=== PATIENT | female | born 1960 | race Two or more races ===

== ENCOUNTER 2022-07-14 14:51 | Outpatient (REF) | payer OTHER, SELFPAY ==
[2022-07-14 16:05] LABS: Blood Urea Nitrogen 10 mg/dL (9-16); Estimated Glomerular Filt Rate > 60
== END 2022-07-14 14:52 | disposition home or self-care (01) ==
LOC: HO.LAB 14:51
PROVIDERS: Visit Provider Psychiatry & Neurology Neurology
DX: G44.209 Tension-type headache, unspecified, not intractable (principal); I10 Essential (primary) hypertension
CPT/HCPCS: 36415; 82565; 84520

== ENCOUNTER 2025-03-12 08:22 | Outpatient (AMB) | payer OTHER, SELFPAY ==
--- OUTSIDE RECORDS SUMMARY | 2025-03-12 08:34 | XMS_ITS | Encounter Summary ---
Author Organization [facility] Address [address] [place] [address] Care Team Providers Care Consumer Insights Intern Name Role Phone Luana Barrera MD Primary Care Provider Encounter Details Date Type Department Care Team (Late Contact Info) Description 02/27/2025 Results Follow-Up [facility] [address] [place] [address] Maura Luna, SANDRA [address] [place] [phone] Social History Tobacco Use Types Packs/Day Years Used Date Smoking Tobacco: Never Smokeless Tobacco: Never Alcohol Use Standard Drinks/Week Comments No 0 (1 standard drink = 0.6 oz pur e alcohol) Comments No Sex and Gender Information Value Date Recorded Sex Assigned at Not on file Legal Sex Female 8:01 PM EST Gender Identity Not on file Sexual Orientation Not on file documented as of this encounter Plan of Treatment Upcoming Encounters Date Type Department Care Team (Late Contact Info) Description 03/28/2025 8:[address] [facility] [address] [place] [address] Rubén Victoria DO [address] [id number] 04/08/2025 8:30 AM EST Office Visit Adult Medicine [facility] [address] [place] [phone] Harinder Orozco PA [address] [place] [address] documented as of this encounter Goals Goal Patient Goal Type Associated Problems Recent Progress Patient-Stated? Author Autogenerat ed Goal Care Plan Autogenerated Problem No Steven Partida documented as of this encounter Visit Diagnoses Not on filedocumented in this encounter Additional Health Concerns Active Problems Noted Date Diagnosed Date Autogenerated Problem 02/27/2025 Assessment Noted Time PHQ-9 Depression Total Score: 12 02/12/2 025 10:24 AM EDT documented as of this encounter Care Teams Consumer Insights Intern Relationship Specialty Start Date End Date Luana Barrera MD [address] [place] [address] PCP - General Internal Medicine 04/08/24 documented as of this encounter
--- OUTSIDE RECORDS SUMMARY | 2025-03-12 08:35 | XMS_ITS | Clinical Summary ---
Author Organization [facility] [address] [place] [address] [place] [phone] Phone Care Team Providers Care Geoscience Laboratory Technician Name Role Phone Luana Barrera MD Primary Care Provider Allergies Active Allergy Reactions Criticality Noted Date Comments Amoxicillin-Pot Clavulanate 04/15/20 14 Other Reaction(s): Rash/Dermatitis Other 06/17/2015 steroids Medications cetirizine (ZyrTEC) 10 mg tablet Take 1 Tablet by mouth daily as needed for Allergies. 4 Active docusate sodium (COLACE) 100 mg capsule Take 1 Capsule by mouth 2 times daily as needed for Constipation. 4 Active metFORMIN XR (GLUCOPHAGE-XR) 500 mg 24 hr tablet Take 1 Tablet by mouth 3 times daily. 4 Active fluticasone propionate (FLONASE) 50 mcg/actuation nasal sprayIndications :Postnasal drip Administer 2 sprays into each nostril 1 (one) time each day. Shake gently. Before first use, prime pump. After use, clean tip and replace cap. 16 g 1 5 05/29/19 26 Active lisinopriL (PRINIVIL,ZESTRI L) 5 mg tablet Take 1 tablet (5 mg total) by mouth 1 (one) time each day. 90 tablet 1 5 Active atorvastatin (LIPITOR) 20 mg tablet Take 1 tablet (20 mg total) by mouth 1 (one) time each day. 90 tablet 1 5 Active cholecalciferol (VITAMIN D3) 1,250 mcg (50,000 unit) tabletIndication s:Routine general medical examination at a health care facility,Type 2 diabetes mellitus without complication, without long-term current use of insulin ([facility] V24, [facility] V28),Dyslipidemi a,Primary hypertension,Scr een for colon cancer,Tremor,Ch ronic midline low back pain without sciatica,Chronic diffuse otitis externa of both ears Take 1 tablet (50,000 Units total) by mouth 1 (one) time per week for 12 doses. and then buy vitamin D3 1000 IU daily. 12 tablet 5 02/23/20 25 clotrimazole-bet amethasone (LOTRISONE) 1-0.05 % cream Apply topically 2 (two) times a day for 7 days. 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 Plan for MRV brain with and without contrast Primary hypertension 08/02/2022 Open fracture of distal phalanx of digit of left hand 11/05/2020 Overview (03/13/2024): Left index finger Vitamin D deficiency 03/15/2017 IBS (irritable bowel syndrome) 03/24/2016 Depression 12/31/2015 Submucous leiomyoma of uterus 04/29/2015 Type 2 diabetes mellitus ([facility] V24, [facility] V 28) 01/03/2014 Overview (03/13/2024): 6.6%-7.3%-diet management, deferred meds for now Tension headache 01/02/2014 Encounters Date Type Department Care Team Description 02/27/2025 Results Follow-Up [facility] [address] [place] [address] Maura Luna CNM 02/13/2025 10:00 AM EDT Office Visit Obstetrics & Gynecology - [address] [phone] Maura Luna CNM Encounter for well woman exam with routine gynecological exam (Primary Dx); Screening breast examination; Cervical high risk HPV (human papillomavirus) test positive; Screening for malignant neoplasm of cervix from Last 3 Months Immunizations Immunization Administration Dates Next Due Influenza trivalent, with pr eservative (Fluzone; Afluria) 6mo and older 06/09/2010 Moderna SARS-CoV-2 COVID-19, mRNA, LNP-S, preservative free 10/20/2020,09/21/2020 Tdap Tetanus diptheria acell ular pertussis (Boostrix; Adacel) 7yo and older 11/04/2020,06/09/2010 Surgical History Surgery Date Site/Laterality Comments MYOMECTOMY 2010 PROCEDURE: PA LAPS MYOMECTOMY EXC 1-4 MYOMAS 250 GM/< COLONOSCOPY 03/2015 PROCEDURE: HISTORICAL COLONOSCOPY; COMMENT: Normal colonoscopy UPPER GASTROINTESTINAL ENDOSCOPY 03/29/2016 PROCEDURE: PA UPPER GI ENDOSCOPY PERFORMED; COMMENT: Normal examination, not on PPI treatment. Medical History Medical History Date Comments Prediabetes 01/03/2014 DX:Prediabetes; COMMENT: Per pt, diagnosed in [place] Unspecified essential hypertension DX:Unspecified essential hypertension Dyslipidemia DX:Dyslipidemia Microscopic hematuria DX:Microsc opic hematuria Recurrent nonproductive cough 01/07/2016 DX :Recurrent nonproductive cough IBS (irritable bowel syndrome) 03/24/2016 D X:IBS (irritable bowel syndrome) Type 2 diabetes mellitus (CM S/HCC V24, CMS/HCC V28) DX:Type 2 diabetes mellitus (HCC) Laceration of left middle fi nger without foreign body without damage to nail 11/05/2020 DX:Laceration of left middle finger without foreign body without damage to nail; COMMENT: Left long finger Family History Medical History Relation Name Comments No Known Problems Daughter Asthma Father from asthm a at age 64 Cataracts Father Hypertension Father No Known Problems Maternal Grandfather No Known Problems Maternal Grandmother Ovarian cancer Mother at age 5 9, No Known Problems Other No Known Problems Paternal Grandfather No Known Problems Paternal Grandmother No Known Problems Sister Blindness Neg Hx Breast cancer Neg Hx Cancer of Small Bowel Neg Hx Colon cancer Neg Hx Glaucoma Neg Hx Kidney cancer Neg Hx Macular degeneration Neg Hx Pancreatic cancer Neg Hx Strabismus Neg Hx Uterine cancer Neg Hx Relation Name Status Comments Daughter Father Maternal Grandfather Maternal Grandmother Mother Other Paternal Grandfather Paternal Grandmother Sister Social History Tobacco Use Types Packs/Day Years Used Date Smoking Tobacco: Never Smokeless Tobacco: Never Tobacco Cessation:Counseling Given: Not Answered Alcohol Use Standard Drinks/Week Comments No 0 (1 standard drink = 0.6 oz pur e alcohol) Comments No Sex and Gender Information Value Date Recorded Sex Assigned at Not on file Legal Sex Female 8:01 PM EST Gender Identity Not on file Sexual Orientation Not on file Obstetrics History * This document contains information received from the source organization and may not represent a complete record from that organization. Para Term AB IAB SAB Ectopic Multiple Livin g Live Births 1 0 0 Date Outcome GA Total Labor Labor/2nd/3rd Weight Sex Type Anes PTL Heena A1 A5 Name Clin Last Filed Vital Signs Vital Sign Reading Time Taken Comments Blood Pressure 130/82 02/13/2025 10:09 AM EDT Pulse 77 02/13/2025 10:09 AM EDT Temperature 36.2 C (97.2 F) 12/05/2024 8:49 AM EDT Respiratory Rate 16 12/05/2024 8:49 AM EDT Oxygen Saturation - - Inhaled Oxygen Concentration - - Weight 68 kg (149 lb 14.4 oz) 02/13/2025 10:09 A M EDT Height 160 cm (5' 3 ) 02/13/2025 10:09 AM EDT Body Mass Index 26.55 02/13/2025 10:09 AM EDT Plan of Treatment Upcoming Encounters Date Type Department Care Team (Late st Contact Info) Description 03/28/2025 8:30 AM EST Appointment [facility] Endoscopy [address] [place] [phone] Rubén Victoria DO 175 [facility] [address] [place] [address] 04/08/2025 8:30 AM EST Office Visit Adult Medicine - [place] [address] [place] [id number] Harinder Orozco, PA [address] [place] [address] Health Maintenance Due Date Last Done Comments Diabetes: Annual Foot Exam 1971 Pneumococcal Vaccine: 50+ Years (1 of 2 - PCV) 1980 Zoster Vaccines (1 of 2) 2011 HIV Screening 04/30/2022 Social Influencers of Health Screening 04/30/2022 COVID-19 Vaccine ( season) 2025 06/14/2021, 10/20/2020, 09/21/2020 Influenza Vaccine (#1) 2025 06/09/2010 Diabetes: Annual Retina Eye Exam 03/05/2025 03/05/2024 Colorectal Cancer Screening: Colonoscopy 03/26/2025 03/26/2015 Diabetes: Annual Urine Albumin-Creatinine Ratio (uACR) 05/29/2025 05/29/2024, 08/28/2023 Diabetes: Blood Sugar Control Test (HGBA1C) 06/07/2025 12/05/2024, 05/29/2024, 02/27/2024, Additional history exists Diabetes: Annual GFR (Glomerular Filtration Rate) 12/05/2025 12/05/2024, 05/29/2024, 02/27/2024, Additional history exists Hypertension/CHF/CAD Annual BMP Blood Test 12/05/2025 12/05/2024, 05/29/2024, 02/27/2024, Additional history exists Breast Cancer Screening 12/03/2026 12/04/19 25, 11/22/2023, 11/22/2023, Additional history exists Cholesterol Screening (Lipid Panel) 05/29/2029 05/29/2024, 02/27/2024, 02/27/2024 Cervical Cancer Screening: HPV 02/13/2030 02/13/2025, 07/20/2023 DTaP,Tdap,and Td Vaccines (3 - Td or Tdap) 11/04/2030 11/04/2020, 06/09/2010 Osteoporosis Screening (Bone Density Screening) 07/04/2034 07/04/2024 RSV Immunization Adult Patients (1 - 1-dose 75+ series) 2036 Hepatitis C Screening Completed 01/03/2014 Depression Screening Completed 02/12/2025, 04/25/20 23 HIB Vaccines Aged Out No longer eligi ble based on patient's age to complete this topic HPV Vaccines Aged Out No longer eligi ble based on patient's age to complete this topic Hepatitis A Vaccines Aged Out No long er eligible based on patient's age to complete this topic Hepatitis B Vaccines Aged Out No long er eligible based on patient's age to complete this topic IPV Vaccines Aged Out No longer eligi ble based on patient's age to complete this topic MMR Vaccines Aged Out No longer eligi ble based on patient's age to complete this topic Meningococcal ACWY Vaccine Aged Out N o longer eligible based on patient's age to complete this topic Meningococcal B Vaccine Aged Out No l onger eligible based on patient's age to complete this topic RSV Immunization Patients Under 20 months Aged Out No longer eligible based on patient's age to complete this topic Varicella Vaccines Aged Out No longer eligible based on patient's age to complete this topic Goals Goal Patient Goal Type Associated Problems Recent Progress Patient-Stated? Author Autogenerat ed Goal Care Plan Autogenerated Problem No Steven Partida Procedures Procedure Name Priority Date/Time Associated Diagnosis Comments PAP SMEAR Routine 02/13/2025 12:43 PM EDT Encounter for well woman exam with routine gynecological exam Cervical high risk HPV (human papillomavirus) test positive Screening for malignant neoplasm of cervix HPV WITH REFLEX GENOTYPE Routine 02/13/2025 12:43 PM EDT Encounter for well woman exam with routine gynecological exam Cervical high risk HPV (human papillomavirus) test positive Screening for malignant neoplasm of cervix COMPREHENSIVE METABOLIC PANEL Routine 12/05/2024 9:32 AM EDT Routine general medical examination at a [facility] HEMOGLOBIN A1C Routine 12/05/2024 9:32 AM EDT Routine general medical examination at a health care facility MG MAMMO DIGITAL SCREENING W OLIVER BILAT Routine 12/03/2024 7:42 AM EDT Encounter for screening mammogram for breast cancer BD BONE DENSITY DXA AXIAL SKELETON Routine 07/04/2024 10:15 AM EST Encounter for screening for osteoporosis MICROALBUMIN CREATININE URINE RATIO Routine 05/29/2024 9:25 AM EST Dyslipidemia Primary hypertension Type 2 diabetes mellitus without complication, without long-term current use of insulin ([facility] V24, [facility] V28) LIPID PANEL WITH REFLEX TO DIRECT LDL Routine 05/29/2024 9:25 AM EST Dyslipidemia Primary hypertension Type 2 diabetes mellitus without complication, without long-term current use of insulin ([facility] V24, [facility] V28) DEPRESSION SCREENING Routine 04/25/2023 COLONOSCOPY Routine 03/26/2015 HEPATITIS C SCREENING Routine 01/03/2014 from Last 3 Months or Most Recently Relevant to Health Maintenance Results * HPV with reflex genotype (02/13/2025 12:43 PM EDT) HPV Negative Negative LAB MICROBIOLOGY METHOD 02/14/2025 2:11 PM EDT [facility] Brushing/Spatula Cervix uteri structure / Unknown 02/13/2025 12:43 PM EDT 02/14/2025 7:22 AM EDT us Maura Luna CNM LAB MOLECULAR DIAGNOSTICS ORD ERABLES Final Result [facility] [address] [place] [address], * Pap smear (02/13/2025 12:43 PM EDT) Interpretation Negative for intraepithelial lesion or malignancy 02/27/2025 8:49 AM EDT [facility] at 0849 EDT Clinical Information 06/2023 PAP neg cytology , + hr hpv ( neg 16, 18/45) 02/27/2025 8:49 AM EDT [facility] General Categorization Negative 02/27/2025 8:49 AM EDT [facility] Other Findings Atrophy 02/27/2025 8:49 AM EDT [facility] Specimen Adequacy Satisfactory for evaluation 02/27/2025 8:49 AM [facility] Pap Methodology Liquid Based Pap Test 02/27/2025 8:49 AM EDT [facility] Disclaimer The Pap test is a screening test which carries an inherent false negative rate. These test results should be correlated with the patient's clinical findings and history. This Pap test was processed using an automated screening system. Technical cytopathology services provided by [facility], at [address] [place] [address] (CLIA # [id number]/Aileen Salomon MD, Corporate Executive Chef.) 02/27/2025 8:49 AM EDT [facility] Console Pap Interpretation Reported 02/27/2025 8:49 AM [facility] Brushing/Spatula Cervix uteri structure / Unknown 02/13/2025 12:43 PM EDT 02/14/2025 7:22 AM EDT Comment:06/2023 PAP neg cytol ogy , + hr hpv ( neg 16, 18/45) Maura FLORES LAB CYTOLOGY ORDERABLES Final Result [facility] [address] [place] [address], [place] [phone] * (ABNORMAL) Hemoglobin A1c (12/05/2024 9:32 AM EDT) [facility] Hemoglobin A1C 6.8(H) <6.5 % LAB CHEMISTRY METHOD 12/05/2024 2:25 PM EDT [facility] Mean Bld Glu Estim. 148 mg/dL LAB CHEMISTRY METHOD 12/05/2024 2:25 PM EDT [facility] Blood Venous blood specimen / Unknown Venipuncture / Unknown 12/05/2024 9:32 AM EDT 12/05/2024 9:32 AM EDT Luana Barrera MD LAB BLOOD ORDERABLES F inal Result [facility] [address] [place] [address], [place] [phone] * (ABNORMAL) Comprehensive metabolic panel (12/05/2024 9:32 AM EDT) [facility] Sodium 140 133 - 145 mmol/L LAB CHEMISTRY METHOD 12/05/2024 3:15 PM T [facility] Potassium 4.4 3.5 - 5.5 mmol/L LAB CHEMISTRY METHOD 12/05/2024 3:15 PM EDT [facility] Chloride 107 96 - 110 mmol/L LAB CHEMISTRY METHOD 12/05/2024 3:15 PM T [facility] CO2 25 21 - 32 mmol/L LAB CHEMISTRY METHOD 12/05/2024 3:15 PM T [facility] Anion Gap 8 3 - 11 LAB CHEMISTRY METHOD 12/05/2024 3:15 PM [facility] Glucose 107(H) 70 - 100 mg/dL LAB CHEMISTRY METHOD 12/05/2024 3:15 PM T [facility] BUN 10 5 - 25 mg/dL LAB CHEMISTRY METHOD 12/05/2024 3:15 PM [facility] Creatinine 0.56 0.50 - 1.10 mg/dL LAB CHEMISTRY METHOD 12/05/2024 3:15 PM [facility] eGFR 103 >=60 mL/min/1. 73m2 LAB CHEMISTRY METHOD 12/05/2024 3:15 PM [facility] Comment:Calculation based on the Chronic Kidney Disease Epidemiology Collaboration (CKD-EPI) equation refit without adjustment for race. BUN/Creatinine Ratio 17.9 LAB CHEMISTRY METHOD 12/05/2024 3:15 PM [facility] Calcium 9.1 8.5 - 10.5 mg/dL LAB CHEMISTRY METHOD 12/05/2024 3:15 PM [facility] AST (SGOT) 18 10 - 42 unit/L LAB CHEMISTRY METHOD 12/05/2024 3:15 PM [facility] ALT (SGPT) 52 10 - 60 unit/L LAB CHEMISTRY METHOD 12/05/2024 3:15 PM [facility] Alkaline Phosphatase 85 42 - 121 unit/L LAB CHEMISTRY METHOD 12/05/2024 3:15 PM [facility] Total Protein 6.9 6.0 - 8.0 g/dL LAB CHEMISTRY METHOD 12/05/2024 3:15 PM [facility] Albumin 3.8 3.2 - 5.0 g/dL LAB CHEMISTRY METHOD 12/05/2024 3:15 PM [facility] Total Bilirubin 0.7 0.0 - 1.4 mg/dL LAB CHEMISTRY METHOD 12/05/2024 3:15 PM [facility] Blood Venous blood specimen / Unknown Venipuncture / Unknown 12/05/2024 9:32 AM EDT 12/05/2024 9:32 AM EDT us Luana Barrera MD LAB BLOOD ORDERABLES F inal Result [facility] [address] [place] [address], [place] [phone] * MG Mammo Digital Screening w Oliver bilat (12/03/2024 7:42 AM EDT) Anatomical Region Laterality Modality Breast Bilateral Mammography 12/04/2024 12:2 7 PM EDT Impressions 12/04/2024 12:39 PM EDT 1. No mammographic evidence of malignancy 2. Heterogeneous breast parenchyma BI-RADS CATEGORY: 2 - BENIGN RECOMMENDATION: Screening bilateral mammogram is recommended in 1 year. Mammo Location: [facility], [address] [place] [address], [id number], . -------- FINAL REPORT -------- Dictated By: Skyla Ibarra Dictated Date: 12/04/2024 12:27 ET Assigned Physician: Skyla Ibarra Reviewed and Electronically Signed By: Skyla Ibarra Signed Date: 12/04/2024 12:39 ET Workstation ID: [id number] Transcribed By: Self Edit Transcribed Date: 12/04/2024 12:27 ET Narrative 12/04/2024 12:39 PM EDT A BILATERAL DIGITAL 3D SCREENING MAMMOGRAPHY HISTORY: Routine screening. No family history of breast cancer. COMPARISON: Mammogram from 11/22/2023 Technique: Bilateral full field digital mammography (3D) was performed using standard CC and MLO projections CAD was used to evaluate this mammogram. FINDINGS: Right: No suspicious masses, groups of microcalcification or areas of architectural distortion identified. Stable typically benign parenchymal asymmetries. Scattered typically benign calcifications. Left: No suspicious masses, groups of microcalcification or areas of architectural distortion identified. Stable typically benign parenchymal asymmetries. Scattered typically benign calcifications BREAST DENSITY: C - The breasts are heterogeneously dense which may obscure small masses. Procedure Note Skyla Ibarra MD - 12/04/2024 A BILATERAL DIGITAL 3D SCREENING MAMMOGRAPHY HISTORY: Routine screening. No family history of breast cancer. COMPARISON: Mammogram from 11/22/2023 Technique: Bilateral full field digital mammography (3D) was performedusing standard CC and MLO projections CAD was used to evaluate this mammogram. FINDINGS: Right: No suspicious masses, groups of microcalcification or areas ofarchitectural distortion identified. Stable typically benign parenchymalasymmetries. Scattered typically benign calcifications. Left: No suspicious masses, groups of microcalcification or areas ofarchitectural distortion identified. Stable typically benign parenchymalasymmetries. Scattered typically benign calcifications BREAST DENSITY: C - The breasts are heterogeneously dense which mayobscure small masses. IMPRESSION: 1. No mammographic evidence of malignancy 2. Heterogeneous breast parenchyma BI-RADS CATEGORY: 2 - BENIGN RECOMMENDATION: Screening bilateral mammogram is recommended in 1 year. Mammo Location: [facility], [address] [place] [address], [id number], . -------- FINAL REPORT -------- Dictated By: Skyla Ibarra Dictated Date: 12/04/2024 12:27 ET Assigned Physician: Skyla Ibarra Reviewed and Electronically Signed By: Skyla Ibarra Signed Date: 12/04/2024 12:39 ET Workstation ID: [id number] Transcribed By: Self Edit Transcribed Date: 12/04/2024 12:27 ET us Luana Barrera MD IMG BI PROCEDURES Dionne l Result * BD Bone Density DXA Axial Skeleton (07/04/2024 10:15 AM EST) Anatomical Region Laterality Modality Wrist, Hip, L-spine Bone Densito metry 07/04/2024 11:2 0 AM EST Impressions 07/04/2024 11:21 AM EST Normal bone mineral density by WHO criteria. [facility] Department of Internal Medicine recommends using National Osteoporosis Foundation (NOF) guidelines in treatment decisions related to osteoporosis. NOF guidelines suggest considering treatment for postmenopausal women and men aged 50 or older presenting with the following: History of hip or vertebral fracture. T-score = -2.5 (DXA) at the femoral neck, total hip, or spine, after appropriate evaluation to exclude secondary causes. Low bone mass (T-score between -1.0 and -2.5 at the femoral neck or spine) AND a 10-year probability of a hip fracture = 3% OR a 10-year probability of a major osteoporosis-related fracture = 20% based on the [place]-adapted WHO algorithm Please note that all treatment decisions require clinical judgment and consideration of individual patient factors, including patient preferences, co-morbidities, previous drug use, risk factors not captured in the FRAX model (e.g., frailty, falls, vitamin D deficiency, increased bone turnover, interval significant decline in bone density) and possible under- or over-estimation of fracture risk by FRAX. Optional alternative screening schedule based on ayla Marin., [facility] June 09, 2011 for patients with osteopenia (based on hip BMD T-score) is as follows: * advanced osteopenia (T scores -2.00 to -2.49), BMD testing every year * moderate osteopenia (T scores -1.50 to -1.99), BMD testing every 5 years mild osteopenia or normal BMD (T scores -1.50 and higher), BMD testing every 15 years -------- FINAL REPORT -------- Dictated By: Trixie Medeiros Dictated Date: 07/04/2024 11:20 ET Assigned Physician: Trixie Medeiros Reviewed and Electronically Signed By: Trixie Medeiros Signed Date: 07/04/2024 11:21 ET Workstation ID: [id number] Transcribed By: Self Edit Transcribed Date: 07/04/2024 11:20 ET Narrative 07/04/2024 11:21 AM EST BONE DENSITY SCAN (DEXA) FINDINGS: Lumbar Spine T-score is 1.5. (SD relative to 20-29 y/o adult) Z-score is 3.1. (SD relative to age matched peers) This is considered normal by WHO criteria. Left Hip T-score is -0.8. Z-score is 0.6. This is considered normal by WHO criteria. Comparison: None. Procedure Note Trixie Medeiros MD - 07/04/2024 BONE DENSITY SCAN (DEXA) FINDINGS: Lumbar Spine T-score is 1.5. (SD relative to 20-29 y/o adult) Z-score is 3.1. (SD relative to age matched peers) This is considered normal by WHO criteria. Left Hip T-score is -0.8. Z-score is 0.6. This is considered normal by WHO criteria. Comparison: None. IMPRESSION: Normal bone mineral density by WHO criteria. [facility] Department of Internal Medicine recommendsusing National Osteoporosis Foundation (NOF) guidelines in treatmentdecisions related to osteoporosis. NOF guidelines suggest consideringtreatment for postmenopausal women and men aged 50 or older presentingwith the following: History of hip or vertebral fracture. T-score = -2.5 (DXA) at the femoral neck, total hip, or spine, afterappropriate evaluation to exclude secondary causes. Low bone mass (T-score between -1.0 and -2.5 at the femoral neck or spine)AND a 10-year probability of a hip fracture = 3% OR a 10-year probabilityof a major osteoporosis-related fracture = 20% based on the [place]-adapted WHOalgorithm Please note that all treatment decisions require clinical judgment andconsideration of individual patient factors, including patientpreferences, co-morbidities, previous drug use, risk factors not capturedin the FRAX model (e.g., frailty, falls, vitamin D deficiency, increasedbone turnover, interval significant decline in bone density) and possibleunder- or over-estimation of fracture risk by FRAX. Optional alternative screening schedule based on ayla Marin., [facility] for patients with osteopenia (based on hip BMD T-score)is as follows: * advanced osteopenia (T scores -2.00 to -2.49), BMD testing every year * moderate osteopenia (T scores -1.50 to -1.99), BMD testing every 5years mild osteopenia or normal BMD (T scores -1.50 and higher), BMD testingevery 15 years -------- FINAL REPORT -------- Dictated By: Trixie Medeiros Dictated Date: 07/04/2024 11:20 ET Assigned Physician: Trixie Medeiros Reviewed and Electronically Signed By: Trixie Medeiros Signed Date: 07/04/2024 11:21 ET Workstation ID: [id number] Transcribed By: Self Edit Transcribed Date: 07/04/2024 11:20 ET us Cayla ADORNO IMG DXA PROCEDURES Fi nal Result * Lipid panel with reflex to direct LDL (05/29/2024 9:25 AM EST) Cholesterol 151 0 - 200 mg/dL LAB CHEMISTRY METHOD 05/29/2024 12:12 PM EST [facility] Triglycerides 94 0 - 150 mg/dL LAB CHEMISTRY METHOD 05/29/2024 12:12 PM EST [facility] HDL 65 >=40 mg/dL LAB CHEMISTRY METHOD 05/29/2024 12:12 PM EST [facility] LDL Calculated 67 0 - 100 mg/dL LAB CHEMISTRY METHOD 05/29/2024 12:12 PM [facility] VLDL Cholesterol Julien 18.8 mg/dL LAB CHEMISTRY METHOD 05/29/2024 12:12 PM [facility] Non HDL Chol. (LDL+VLDL) 86 <145 mg/dL LAB CHEMISTRY METHOD 05/29/2024 12:12 PM [facility] Chol/HDL Ratio 2.3 0.0 - 4.4 LAB CHEMISTRY METHOD 05/29/2024 12:12 PM [facility] Blood Venous blood specimen / Unknown Venipuncture / Unknown 05/29/2024 9:25 AM EST 05/29/2024 9:25 AM EST us Harinder ADORNO LAB BLOOD ORDERABLES Final Re sult [facility] [address] [place] [address], [place] [phone] * Microalbumin creatinine urine ratio (05/29/2024 9:25 AM EST) Creatinine, Urine 95.0 mg/dL LAB CHEMISTRY METHOD 05/29/2024 1:06 PM EST [facility] Microalb, Ur 12.2 0.0 - 29.0 mg/L LAB CHEMISTRY METHOD 05/29/2024 1:06 PM EST [facility] Microalb/Creat Ratio 13 <30 mg/g creat LAB CHEMISTRY METHOD 05/29/2024 1:06 PM EST [facility] Urine Urine specimen obtained by clean catch procedure / Unknown Non-blood Collection / Unknown 05/29/2024 9:25 AM EST 05/29/2024 9:25 AM EST Harinder ADORNO LAB URINE ORDERABLES Final Re sult [facility] [address] [place] [address], * Depression Screening (04/25/2023) Depression Screening Abstracted [facility] Provider HEALTH MAINTENANCE Final Result * Colonoscopy (03/26/2015) Pathologist [facility] Colonoscopy No Interpretation , Abstracted Anatomical Region Laterality Modality Other [facility] Provider HEALTH MAINTENANCE Final Result * Hepatitis C Screening (01/03/2014) Pathologist [facility] Hepatitis C Screening Abstracted [facility] Provider HEALTH MAINTENANCE Final Result from Last 3 Months or Most Recently Relevant to Health Maintenance Additional Health Concerns Active Problems Noted Date Diagnosed Date Autogenerated Problem 02/27/2025 Insurance [facility] PUBLIC [employer] Care Teams [employer] Laboratory Technician Relationship Specialty Start Date End Date Luana Barrera MD [address] [place] [id number] PCP - General Internal Medicine 04/08/24
--- NOTE | 2025-03-12 08:39 | A.OFFVIS_ITS ---
Intake Visit Reasons: ENP-Tremor Allergies amoxicillin Allergy (Unknown, Verified 03/10/25 12:46) Rash Medication List - Last Reconciled 03/12/25 by Bryant Corley MD atorvastatin (Lipitor) 20 mg PO DAILY lisinopril 2.5 mg PO DAILY metformin 500 mg PO DAILY HPI Comments Details: This is a 64-year-old woman who speaks Mandarin [place] and a little bit of Telugu who was evaluated using a [place] claims auditor Viviane Chapman. She has many year history of insomnia not getting more than 2-3 hours of sleep at night fatigue and daily headaches she feels stuffy all the time. She has been worked up in the past the results of which are below. She is now back after 4 months saying that she feels stuffy and headachy. She is also very anxious because of the deterioration of the [place] relationship and fears that there is going to be a war. She has trouble sleeping at night. She has stopped her amitriptyline which was helping her because she said that she did not feel good on it. She feels she is on too much medication and does not want any more and also did not want a follow-up MRI. On her last visit she had reported improvement in headaches Less frequent and less severe. MRI brain 06/28/22 which shows hypertensive white matter microvacsular disease and a possible filling defect in right transverse sinus. MRA 08/25/22 shows no right transverse sinus thrombus, but possibly superior sag sinus partial filling defect She has a five- year history of frequent headaches and pressure on the head 3 or 4 days a week sometimes with lightheadedness. She tends to cry easily most of the time. She has not been sleeping well. [facility] Medical History (Updated 03/12/25 @ 08:59 by Bryant Corley MD) Tension headache Type 2 diabetes mellitus Submucous leiomyoma of uterus Depression IBS (irritable bowel syndrome) Vitamin D deficiency Open fracture of distal phalanx of digit of left hand HTN (hypertension) Thrombosis of superior sagittal sinus Cervical high risk HPV (human papillomavirus) test positive Hematuria Dyslipidemia Family History (Updated 03/10/25 @ 12:45 by WILLIAM Ceballos) Father Asthma Cataracts, bilateral HTN (hypertension) Mother Ovarian cancer Review of Systems Const Details: Sleep:? Difficulty getting to sleep?admits.? Difficulty maintaining sleep?admits .? Urge to move legs?denies.? Teeth grinding?denies.? Shouting or Kicking during sleep?denies.? Abnormal behavior during sleep?denies.? Excessive sleep?denies.? Snoring?denies.? Daytime sleepiness?denies.? ?? General/Constitutional:? Change in appetite?denies.? Chills?denies.? Fatigue?denies.? Fever?denies .? Weight gain?denies.? Weight loss?denies.? ?? Ophthalmologic:? Blurred vision?denies.? Diminished visual acuity?denies.? ?? ENT:? Stuffiness?denies.? Decreased hearing?denies.? Dry mouth?denies.? Ear pain?denies.? Nosebleed?denies.? Ringing in the ears?denies.? Sinus pain?denies .? Sore throat?denies.? Swollen glands?denies.? ?? Endocrine:? Cold intolerance?denies.? Excessive thirst?denies.? Frequent urination? denies.? Heat intolerance?denies.? ?? Respiratory:? Shortness of breath?denies.? Chest pain?denies.? Cough?denies.? ?? Breast:? Breast lump?denies.? Nipple discharge?denies.? ?? Cardiovascular:? Chest pain at rest?denies.? Chest pain with exertion?denies.? Claudication?denies.? Dizziness?denies.? Fluid accumulation in the legs?denies.? Irregular heartbeat?denies.? Palpitations?denies.? ?? Gastrointestinal:? Abdominal pain?denies.? Constipation?denies.? Diarrhea?denies.? Difficulty swallowing?denies.? Heartburn?denies.? Nausea?denies.? Rectal bleeding?denies.? ?? Hematology:? Easy bruising?denies.? Prolonged bleeding?denies.? ?? Genitourinary:? Frequent urination?denies.? Urgency?denies.? Incontinence?denies.? Erectile Dysfunction?denies.? ?? Musculoskeletal:? Neck pain?denies.? Back pain?denies.? Muscle aches?denies.? Painful joints?denies.? Sciatica?denies.? Weakness?denies.? ?? Podiatric:? Difficulty walking?denies.? Foot numbness?denies.? ?? Neurologic:? Difficulty swallowing?denies.? Balance difficulty?denies.? Coordination? normal.? Difficulty speaking?denies.? Dizziness?admits.? Fainting?denies.? Gait abnormality?denies.? Headache?admits.? Loss of strength?denies.? Loss of use of extremity?denies.? Low back pain?denies.? Memory loss?denies.? Seizures?denies.? Tics?denies.? Tingling/Numbness?denies.? Transient loss of vision?denies.? Tremor?denies.? ?? Psychiatric:? Anxiety?admits.? Auditory/visual hallucinations?denies.? Delusions?denies .? Depressed mood?denies.? Stressors?admits.? Substance abuse?denies.? Suicidal thoughts?denies.? ?? Physical Exam Neuro Other: Neurological: ? Abnormal neurological findings:??none.? Mental Status:?alert and oriented X 3,?Normal attention, orientation, memory and affect.? Cranial Nerves:?Pupils are equal, round and reactive to light. Fundoscopy shows normal disc bilaterally. External occular muscles are intact. Visual whitney are full, no ptosis. Face is symmetrical, no facial weakness or droop. Facial sensations are normal. Tongue protrudes in midline. Palate elevates symmetrically. Shoulder shrugging is normal..? Motor Examination:?Normal muscle tone, bulk and strength,?No atrophy or fasciculations,?No drift of the extended upper extremities,?Deep tendon reflexes are 2+?,?Plantars are flexor?.? Straight Leg Raising:?90 degrees.? Sensory Exam:?Normal light touch, temperature, pinprick, vibration and joint-position sensations?,?Rhomberg sign is absent.? Coordination:?no ataxia,?no titubation,?[id number]-kw-mrti, [id number]-[id number]-[id number] test and rapid alternating movements were normal.? Gait Exam:?Within normal limits.? Cerebellar Signs:?Crllhm-xj-xafo and vklu-yl-zeep is normal,?no dysdiadochokinesia?.? Extrapyramidal System:?No tremor, rigidity with normal facial expressions,?No bradykinesia, no bradyphrenia. Normal arm swing and posture. No propulsion or retropulsion.? Speech:?Normal,?no dysphasia or dysarthria..? Mini Mental Status Exam: ? Level of Consciousness:?Alert.? Orientation:?Knows correct year, month, date, day and season,?Knows correct city, county and state. Knows correct location and floor.? Registration:?Able to register 3 objects.? Attention:?Serial 7's performed accurately.? Recall:?Able to recall 3 out of 3 objects.? Language:?Normal spontaneous speech, fluency, repetition,naming, comprehension, reading and writing.? Total Score ?30/30.? General Examination: ? GENERAL APPEARANCE:?normal,?in no acute distress.? HEAD:?normocephalic,?atraumatic.? EYES:?sclera non-icteric,?conjunctiva clear.? EARS:?auditory canal clear,?tympanic membrane intact, clear.? NOSE:?no lesions.? ORAL CAVITY:?gums normal,?mucosa moist,?no lesions.? THROAT:?clear.? NECK/THYROID:?no cervical lymphadenopathy,?thyroid normal,?neck supple, full range of motion,?no carotid bruit.? SKIN:?no rashes,?no significant birthmarks.? HEART:?S1, S2 normal,?no murmurs.? LUNGS:?clear anteriorly and posteriorly.? CHEST:?no gross rib deformity,?clear to auscultation.? BACK:?normal exam of spine.? EXTREMITIES:?no edema.? PERIPHERAL PULSES:?normal.? PSYCH:?alert, oriented,?cognitive function intact,?cooperative with exam.? Assessment & Plan Assessment & Plan (1) Thrombosis of superior sagittal sinus: Code(s): G08 - Intracranial and intraspinal phlebitis and thrombophlebitis Category: Medical (2) Tension headache: Code(s): G44.209 - Tension-type headache, unspecified, not intractable Category: Medical (3) Depression: Code(s): F32.A - Depression, unspecified Category: Medical (4) Insomnia: Code(s): G47.00 - Insomnia, unspecified Category: Medical (5) Anxiety: Code(s): F41.9 - Anxiety disorder, unspecified Category: Medical Plan She does not want to have a follow-up MRI at this point. She has stopped her amitriptyline because she said that she was not feeling well. She is not sleeping more than 2 3 hours so will add some Lorazepam for anxiety and for sleep. She wants to try her [place] therapies 1st. Medications: New clonazepam (Klonopin) administer 30 minutes before bedtime 0.5 mg PO BEDTIME 30 tabs 2RF Coding Level of Care Code Est Pt Level 4 (47572) Diagnoses Thrombosis of superior sagittal sinus G08 Tension headache G44.209 Depression F32.A Insomnia G47.00 Anxiety F41.9
== END 2025-03-12 09:03 | disposition home or self-care (01) ==
LOC: HO.HSM 08:23
PROVIDERS: Visit Provider Psychiatry & Neurology Neurology
DX: G08 Intracranial and intraspinal phlebitis and thrombophlebitis (principal); G44.209 Tension-type headache, unspecified, not intractable; F32.A Depression, unspecified; G47.00 Insomnia, unspecified; F41.9 Anxiety disorder, unspecified
CPT/HCPCS: 99214

== ENCOUNTER → 2025-03-12 08:22 | Outpatient (BNVA) | payer OTHER, SELFPAY | PROVIDERS: Visit Provider Psychiatry & Neurology Neurology | DX: G08 Intracranial and intraspinal phlebitis and thrombophlebitis (principal); G47.00 Insomnia, unspecified; G44.209 Tension-type headache, unspecified, not intractable; F41.9 Anxiety disorder, unspecified; F32.A Depression, unspecified | CPT/HCPCS: 99212 ==